=== PATIENT | female | born 1930 | race Caucasian/White ===

== ENCOUNTER 2018-04-26 07:29 | Outpatient (CLI) | payer OTHER ==
[~2018-04-26 07:29] MED LIST: DOXAZOSIN MESYLA2 MG; GABAPENTIN300 MG; GLIMEPIRIDE2 MG; LOSARTAN POTAS100 MG
== END 2018-04-26 10:00 | disposition home or self-care (01) ==
LOC: NUCLEAR 07:29
DX: I20.8 Other forms of angina pectoris (principal); R07.89 Other chest pain
CPT/HCPCS: 78452; 93017; A9500; J0153

== ENCOUNTER 2018-08-24 09:57 | Inpatient (IN) | payer OTHER ==
[~2018-08-24] VITALS: Ht 152.4 cm; Wt 63.5 kg
[2018-08-24] MEDS ORDERED: LOSARTAN-HCTZ1 EAC1 PO (10:54)
[2018-08-24] MEDS ORDERED: ARICEPT10 MG PO (10:55)
[2018-08-24] MEDS ORDERED: PRAVACHOL80 MG PO (10:55)
[2018-08-24] MEDS ORDERED: GLUCOTROL XL5 MG PO (10:55)
[2018-08-24] MEDS ORDERED: NORVASC2.5 M1 PO (10:55)
[2018-08-24] MEDS ORDERED: RESTORIL15 M1 PO (10:56)
[2018-08-24] MEDS ORDERED: ASPIR 8181 MG PO (10:56)
[2018-08-24] MEDS ORDERED: ZOLOFT50 MG PO (10:56)
[2018-08-24] MEDS ORDERED: PRILOSEC OTC20 MG PO (10:57)
[2018-08-30] MEDS ORDERED: Neurin-Sl Tablet Sl SL (10:58)
[2018-08-30] MEDS ORDERED: Intestinex CAP PO (10:58)
[2018-08-30] MEDS ORDERED: FOLIC ACID1 MG PO (10:58)
[2018-08-30] MEDS ORDERED: ARICEPT10 MG PO (10:58)
[2018-08-30] MEDS ORDERED: RESTORIL15 MG PO (10:58)
[2018-08-30] MEDS ORDERED: ASA-EC81 MG PO (10:58)
[2018-08-30] MEDS ORDERED: LOSARTAN POTASS50 MG PO (10:58)
[2018-08-30] MEDS ORDERED: FLAGYL500MG PO (10:58)
[2018-08-30] MEDS ORDERED: LEVAQUIN500 MG PO (10:58)
[2018-08-30] MEDS ORDERED: NEURONTIN300 MG PO (10:58)
[2018-08-30] MEDS ORDERED: SERTRALINE HCL50 MG PO (10:58)
[2018-08-30] MEDS ORDERED: IPRAT-ALBUT 0.5-3 ML IH (11:01)
[2018-08-30] MEDS ORDERED: XOPENEX0.63 MG/3 IH (11:01)
== END 2018-08-30 14:38 | disposition home or self-care (01) | DRG 178 ==
LOC: ER 09:57 → SURH 22:25 → MEDI 22:25 → SURH 22:53
PROC: 8E0ZXY6 Isolation (ICD-10-PCS; 2018-08-24)
PROC: 4A033R1 Measurement of Arterial Saturation, Peripheral, Percutaneous Approach (ICD-10-PCS; 2018-08-24)
PROC: 30233N1 Transfusion of Nonautologous Red Blood Cells into Peripheral Vein, Percutaneous Approach (ICD-10-PCS; principal; 2018-08-25)
DX: J69.0 Pneumonitis due to inhalation of food and vomit (principal); A09 Infectious gastroenteritis and colitis, unspecified; N17.8 Other acute kidney failure; D51.3 Other dietary vitamin B12 deficiency anemia; F02.80 Dementia in other diseases classified elsewhere, unspecified severity, without behavioral disturbance, psychotic disturbance, mood disturbance, and anxiety; G30.0 Alzheimer's disease with early onset; E86.0 Dehydration; D63.8 Anemia in other chronic diseases classified elsewhere; E11.65 Type 2 diabetes mellitus with hyperglycemia; E11.40 Type 2 diabetes mellitus with diabetic neuropathy, unspecified; E78.00 Pure hypercholesterolemia, unspecified; E78.2 Mixed hyperlipidemia; R09.02 Hypoxemia; I10 Essential (primary) hypertension; M54.5 Low back pain; K21.9 Gastro-esophageal reflux disease without esophagitis; F32.9 Major depressive disorder, single episode, unspecified; G47.09 Other insomnia; Z74.01 Bed confinement status; Z88.6 Allergy status to analgesic agent